=== PATIENT | male | born 1985 | race Caucasian/White ===

== ENCOUNTER 2022-02-22 07:56 | Outpatient (CLI) | payer BC, SELFPAY ==
[2022-02-22 09:50] LABS: Albumin* 4.5 g/dL (3.3-5.0)
[2022-02-22 09:51] LABS: Chloride* 101 mmol/L (96-114); Potassium* 4.1 mmol/L (3.6-5.1); Sodium* 135 mmol/L (135-149)
[2022-02-22 09:53] LABS: Aspartate Amino Transferase* 34 U/L (12-35); Bilirubin Total* 0.8 mg/dL (0.1-1.5); Blood Urea Nitrogen* 13 mg/dL (5-24); Carbon Dioxide* 26 mmol/L (20-32); Cholesterol* 218 mg/dL (90-199); Creatinine* 0.6 mg/dL (0.5-1.5); Estimated Glomerular Filt Rate 128 ml/min; Glucose* 98 mg/dL (60-115); Total Protein* 7.2 g/dL (6.0-8.3)
[2022-02-22 09:54] LABS: Alanine Aminotransferase* 45 U/L (4-50); Alkaline Phosphatase* 70 U/L (40-150); Calcium* 9.3 mg/dL (8.4-10.6); HDL Cholesterol* 71 mg/dL (>=40); LDL Cholesterol Calculated 121 mg/dL (<100); Triglycerides* 132 mg/dL (40-149)
== END 2022-02-22 07:57 | disposition home or self-care (01) ==
LOC: NFLDREF 07:57
PROVIDERS: PCP Family Medicine; Visit Provider Family Medicine
DX: Z00.00 Encounter for general adult medical examination without abnormal findings (principal); E78.5 Hyperlipidemia, unspecified; I10 Essential (primary) hypertension; E66.9 Obesity, unspecified; F41.9 Anxiety disorder, unspecified
CPT/HCPCS: 80053; 80061

== ENCOUNTER 2023-02-27 07:31 | Outpatient (CLI) | payer BC, SELFPAY | END 2023-02-27 07:32 | disposition home or self-care (01) | LOC: NFLDREF 03-03 09:06 | PROVIDERS: PCP Family Medicine; Referring Provider Family Medicine; Visit Provider Family Medicine | DX: E78.5 Hyperlipidemia, unspecified (principal) | CPT/HCPCS: 80053; 80061 ==

== ENCOUNTER 2023-09-02 08:37 | Outpatient (CLI) | payer OTHER, SELFPAY ==
--- OUTSIDE RECORDS SUMMARY | 2023-09-04 08:50 | XMS_ITS | Clinical Summary ---
Author Name Unknown Organization [facility] Address [address] [place] [id number] Care Team Providers Care Credit Support Specialist Name Role Phone Xiomy Bernabe PA-C Primary Care Pr ovider Allergies No known active allergies Medications Medication Sig Dispensed Refills Start Date End Date Status OMEPRAZOLE 20 MG OR TBEC None Entered Active PEPTO-BISMOL 262 MG/15ML OR SUSP 0 01/03/2009 Active amLODIPine (NORVASC) 10 MG tablet Take 10 mg by mouth daily 10/17/2019 Active losartan (COZAAR) 50 MG tablet Take 50 mg by mouth daily 11/11/2019 Active lisinopril (ZESTRIL) 10 MG tablet Take 10 mg by mouth daily 06/30/2019 Active Active Problems Problem Noted Date Diagnosed Date CARDIOVASCULAR SCREENING; LDL GOAL LESS THAN 160 02/18/2010 GERD (gastroesophageal reflux disease) 9 Immunizations Name Administration Dates Next Due TDAP Vaccine (Adacel) 07/01/2008 Family History Medical History Relation Comments Hypertension Father C.A.D. Maternal Uncle in 30s Hypertension Mother Lipids Mother Heart Disease Other Relation Status Comments Father Alive Maternal Uncle Mother Alive Other Social History Tobacco Use Types Packs/Day Years Used Date Smoking Tobacco: Former Smokeless Tobacco: Never Comments:2007 Alcohol Use Standard Drinks/Week Comments Yes 0 (1 standard drink = 0.6 oz pur e alcohol) occasional Sex and Gender Information Value Date Recorded Sex Assigned at Not on file Gender Identity Not on file Sexual Orientation Not on file Last Filed Vital Signs Vital Sign Reading Time Taken Comments Blood Pressure 148/80 12/31/2019 7:14 PM CDT Pulse 81 12/31/2019 7:14 PM CDT Temperature 37 ??C (98.6 ??F) 12/31/2019 7:14 PM CDT Respiratory Rate - - Oxygen Saturation 99% 12/31/2019 7:14 PM CDT Inhaled Oxygen Concentration - - Weight 109.8 kg (242 lb) 12/31/2019 7:14 PM CDT Height 167.6 cm (5' 6) 01/03/2009 8:39 AM CDT Body Mass Index - - Plan of Treatment Not on file Care Teams Credit Support Specialist Relationship Specialty Start Date End Date Xiomy Bernabe PA-C [id number] [place], [place] [id number] PCP - General 01/03/09
--- OUTSIDE RECORDS SUMMARY | 2023-09-04 08:51 | XMS_ITS | Referral Summary ---
Author Name Unknown Organization [facility] Address [address] [place] [id number] Care Team Providers Care Garment Manufacturing Supervisor Name Role Phone Xiomy Bernabe PA-C Primary [...] Dates Next Due TDAP Vaccine (Adacel) 07/01/2008 Social History Tobacco Use Types Packs/Day Years [...] of Treatment Not on file Care Teams Garment Manufacturing Supervisor Relationship Specialty Start Date End Date Xiomy Bernabe PA-C [id number] [address] [place], [place] [id number] PCP - General 01/03/09
--- OUTSIDE RECORDS SUMMARY | 2023-09-04 08:51 | XMS_ITS | Clinical Summary ---
Author Name Unknown Organization [facility] Address [place], [place] [address] Care Team Providers Care Telehealth Coordinator Name Role Phone Chandler Rivera MD Primary Care Provider Allergies No known active allergies Medications Medication Sig Dispensed Refills Start Date End Date Status omeprazole (PRILOSEC) 20 mg capsule Take 1 capsule by mouth once daily before a meal. 0 06/16/2009 Active amLODIPine (NORVASC) 10 mg tablet TAKE 10 MG ORALLY DAILY 11/18/2022 Active chlorthalidone (HYGROTON) 25 mg tablet TAKE 12.5 MG ORALLY DAILY 11/18/2022 Active losartan (COZAAR) 100 mg tablet TAKE 100 MG ORALLY EVERY DAY 11/18/2022 Active Active Problems Problem Noted Date Diagnosed Date Encounter for screening for cardiovascular disor ders 02/18/2010 GERD (gastroesophageal reflux disease) 9 Social History Tobacco Use Types Packs/Day Years Used Date Smoking Tobacco: Former Cigarettes Q uit: 02/10/2008 Smokeless Tobacco: Never Tobacco Cessation:Counseling Given: Not Answered Alcohol Use Standard Drinks/Week Comments Yes 0 (1 standard drink = 0.6 oz pur e alcohol) Sex and Gender Information Value Date Recorded Sex Assigned at Not on file Gender Identity Not on file Sexual Orientation Not on file Obstetrics History Last Filed Vital Signs Vital Sign Reading Time Taken Comments Blood Pressure 136/87 12/08/2022 12:40 PM CDT Pulse 76 12/08/2022 12:40 PM CDT Temperature 36.4 ??C (97.6 ??F) 12/08/2022 12:40 PM C DT Respiratory Rate 12 12/08/2022 12:40 PM CDT Oxygen Saturation 98% 12/08/2022 12:40 PM CDT Inhaled Oxygen Concentration - - Weight 122.5 kg (270 lb) 12/08/2022 12:40 PM CDT Height 167.6 cm (5' 6) 12/08/2022 12:40 PM CDT Body Mass Index 43.58 12/08/2022 12:40 PM CDT Plan of Treatment Health Maintenance Due Date Last Done Comments Tdap 1995 Depression screening for age 12+ 1996 HIV for age 15-65 1999 BMI (ht and wt on same day) for age 18+ 2002 Hepatitis C screening for age 18-79 2002 Tetanus booster 2004 Lipids for age 35-44 2019 COVID-19 vaccine series (2022- season) 2022 02/08/2022, 03/07/2021, 08/15/2020, Additional history exists Influenza for age 9-49 12/21/2023 Pneumococcal series for age 6-64 Aged Out No longer eligible based on patient's age to complete this topic Care Teams Telehealth Coordinator Relationship Specialty Start Date End Date Chandler Rivera MD [address] [place] [id number] PCP - General Family Practice 12/08/22
== END 2023-09-02 08:38 | disposition home or self-care (01) ==
LOC: NFLDREF 09-04 08:49
PROVIDERS: PCP Family Medicine; Referring Provider Family Medicine; Visit Provider Family Medicine
DX: R79.89 Other specified abnormal findings of blood chemistry (principal)
CPT/HCPCS: 80053

== ENCOUNTER 2024-06-25 07:51 | Outpatient (CLI) | payer OTHER, SELFPAY | END 2024-06-25 07:52 | disposition home or self-care (01) | LOC: NFLDREF 06-27 12:29 | PROVIDERS: PCP Family Medicine; Referring Provider Family Medicine; Visit Provider Family Medicine | DX: E78.5 Hyperlipidemia, unspecified (principal); I10 Essential (primary) hypertension | CPT/HCPCS: 80053; 80061 ==

== ENCOUNTER 2024-09-01 10:30 | Outpatient (CLI) | payer OTHER, SELFPAY ==
[2024-09-03 08:49] LABS: Adenovirus PCR Not Detected; Astrovirus PCR Not Detected; Campylobacter PCR Not Detected; Cryptosporidium PCR Not Detected; Cyclospora cayetanensis PCR Not Detected; Entamoeba histolytica PCR Not Detected; Enteroaggregative E coli PCR Not Detected; Enteropathogenic E coli PCR Not Detected; Enterotoxigenic E coli PCR Not Detected; Giardia lamblia PCR Not Detected; Norovirus Gi/GII PCR Detected; Plesiomonas shig PCR Not Detected; Rotavirus A PCR Not Detected; Salmonella PCR Not Detected; Sapovirus PCR Not Detected; Shiga toxin E coli PCR Not Detected; Shigella/Enteroinvasive E coli Not Detected; Vibrio PCR Not Detected; Vibrio cholerae PCR Not Detected; Yersinia enterocolitica PCR Not Detected
== END 2024-09-01 10:31 | disposition home or self-care (01) ==
PROVIDERS: PCP Family Medicine; Visit Provider Physician Assistant Medical
DX: R19.7 Diarrhea, unspecified (principal)
CPT/HCPCS: 87505